=== PATIENT | female | born 1930 | race Caucasian/White ===

== ENCOUNTER 2017-02-21 13:37 | Inpatient (IN) | payer MEDICARE, BC ==
[2017-02-21] MEDS ORDERED: Acetaminophen 500 MG Tab PO ONE (14:34)
--- NOTE | 2017-02-21 14:38 | EDM.PDOC ---
ED HPI GENERAL MEDICAL PROBLEM - General Chief Complaint: General Stated Complaint: WEAK Time Seen by Provider: 02/21/17 14:22 Source of Information: Reports: Patient, Family - History of Present Illness INITIAL COMMENTS - FREE TEXT/NARRATIVE: Poonam is an 87 yo female who presents to the ER, accompanied by her children , with concerns of just not feeling well. They state they have noticed her not being herself for the last couple of weeks. She has a history of UTI's and they are concerned she may have one again. She did have diarrhea the other day and that has since subsided. She did throw up in the middle of the night, nothing since. Family has noticed she has been incontinent today and slightly disorientated. She states she feels well otherwise. Hasn't had any upper respiratory symptoms. She admits she just feels weak. Duration: Getting Worse Location: Reports: Abdomen, Generalized - Related Data Allergies Allergy/AdvReac Type Severity Reaction Status Date / Time aspirin Allergy Nausea Verified 02/21/17 13:42 ciprofloxacin [From Cipro] Allergy Nausea Verified 02/21/17 13:42 ciprofloxacin HCl Allergy Nausea Verified 02/21/17 13:42 [From Cipro] Erlztqa-Tom-Dmi Reductase Allergy Nausea Verified 02/21/17 13:42 Inhibitor Sulfa (Sulfonamide Allergy Nausea Verified 02/21/17 13:42 Antibiotics) Home Meds: Home Meds Acetaminophen [Tylenol] 325 mg PO Q4H PRN 01/02/14 [History] Cholecalciferol (Vitamin D3) [Vitamin D3] 3,000 unit PO DAILY 01/02/14 [History] Levothyroxine [Synthroid] 50 mcg PO DAILY 01/02/14 [History] MV-Mn/Iron/FA/Herbal Cmplx#[id number] [Vitamin D3 Complete Caplet] 1 each PO DAILY 09/08 [History] Metoprolol Succinate [Toprol XL] 25 mg PO DAILY 01/02/14 [History] Multivitamin [Multi-Vitamin Daily] 1 each PO DAILY 01/02/14 [History] Warfarin Sodium 2.5 mg PO SUTUTH 01/02/14 [History] Warfarin Sodium 5 mg PO MOWEFR 01/02/14 [History] amLODIPine [Norvasc] 10 mg PO DAILY 01/02/14 [History] Past Medical History HEENT History: Reports: Cataract, Hard of Hearing, Impaired Vision Cardiovascular History: Reports: Afib, Hypertension Other Genitourinary History: Methicillin-resistant Staphylococcus aureus UTI. [employer] History: Reports: Other (See Below) Other OB/BYN History: hysterectomy Musculoskeletal History: Reports: Arthritis Neurological History: Reports: CVA Endocrine/Metabolic History: Reports: Hypothyroidism - Infectious Disease History Infectious Disease History: Reports: MRSA - Past Surgical History HEENT Surgical History: Reports: Adenoidectomy, Cataract Surgery, Tonsillectomy GI Surgical History: Reports: Appendectomy, Cholecystectomy, Colonoscopy Social & Family History - Tobacco Use Smoking Status *Q: Former Smoker Used Tobacco, but Quit: Yes Month Tobacco Last Used: 40 y.o - Caffeine Use Caffeine Use: Reports: Coffee - Recreational Drug Use Recreational Drug Use: No ED ROS GENERAL - Review of Systems Review Of Systems: See Below Constitutional: Reports: Fever, Decreased Appetite HEENT: Reports: No Symptoms Respiratory: Denies: Shortness of Breath, Wheezing, Cough Cardiovascular: Denies: Chest Pain, Edema, Palpitations, Syncope GI/Abdominal: Reports: Diarrhea, Decreased Appetite, Vomiting. Denies: Abdominal Pain, Bloody Stool : Reports: Frequency, Incontinence. Denies: Dysuria Musculoskeletal: Reports: No Symptoms Skin: Reports: No Symptoms Neurological: Reports: No Symptoms ED EXAM, GENERAL - Physical Exam Exam: See Below Exam Limited By: No Limitations General Appearance: Alert, No Apparent Distress, Thin Ears: Normal External Exam, Hearing Grossly Normal Nose: Normal Inspection, No Blood Throat/Mouth: Normal Inspection, Normal Lips, Normal Oropharynx, Normal Voice, No Airway Compromise Head: Atraumatic, Normocephalic Neck: Normal Inspection, Supple Respiratory/Chest: No Respiratory Distress, Lungs Clear, Normal Breath Sounds, No Accessory Muscle Use Cardiovascular: Regular Rate, Rhythm, No Murmur GI/Abdominal: Normal Bowel Sounds, Soft, Non-Tender, No Organomegaly, No Mass Extremities: Normal Inspection, No Pedal Edema, Normal Capillary Refill Neurological: Alert, Memory Loss Recent Events. No: Slow to Respond Psychiatric: Normal Affect, Normal Mood Skin Exam: Dry, Intact, Normal Color, Increased Warmth Course - Vital Signs Last Recorded V/S: Last Vital Signs Temp 100.8 F H 02/21/17 13:39 Pulse 108 H 02/21/17 13:39 Resp 18 02/21/17 13:39 BP 137/69 02/21/17 13:39 Pulse Ox 96 02/21/17 13:39 - Orders/Labs/Meds Labs: Laboratory Tests 02/21/17 02/21/17 02/21/17 Range/Units 13:57 14:05 14:05 WBC 11.4 H (5.0-10.0) 10^3/uL RBC 4.83 (4.00-5.50) 10^6/uL Hgb 15.2 (12.0-16.0) g/dL Hct 45.0 (37.0-47.0) % MCV 93.2 (82.0-94.0) fL MCH 31.5 (27.0-32.0) pg MCHC 33.8 (33.0-38.0) g/dL RDW Coeff of Diana 13.4 (11.0-15.0) % Plt Count 166 (150-400) 10^3/uL Neut % (Auto) 89.9 H (35-85) % Lymph % (Auto) 4.4 L (10-55) % [place] % (Auto) 5.6 (0-16) % Eos % (Auto) 0 (0-5) % Baso % (Auto) 0.1 (0-3) % Neut # (Auto) 10.26 H (1.80-7.00) 10^3/uL Lymph # (Auto) 0.50 L (1.00-4.80) 10^3/uL [place] # (Auto) 0.64 (0.00-0.80) 10^3/uL Eos # (Auto) 0.00 (0.00-0.45) 10^3/uL Baso # (Auto) 0.01 10^3/uL PT 15.7 H (9.7-12.3) SEC INR 1.44 H (0.92-1.18) Sodium (136-145) mEq/L Potassium (3.5-5.0) mEq/L Chloride (98-106) mEq/L Carbon Dioxide (21-32) mmol/L BUN (7-18) mg/dL Creatinine (0.6-1.0) mg/dL Est Cr Clr Drug Dosing mL/min Estimated GFR (MDRD) (>=60) mL/min Glucose (75-99) mg/dL Calcium (8.4-10.1) mg/dL Total Bilirubin (0.0-1.0) mg/dL AST (15-37) U/L ALT (12-78) U/L Alkaline Phosphatase (46-116) U/L C-Reactive Protein (0.2-0.8) mg/dL Total Protein (6.4-8.2) g/dL Albumin (3.4-5.0) g/dL Urine Color Yellow (YELLOW) Urine Appearance Clear (CLEAR) Urine pH 7.0 (4.5-8.0) Ur Specific [place] 1.015 (1.003-1.020) Urine Protein Negative (NEGATIVE) mg/dL Urine Glucose (UA) Negative (NEGATIVE) mg/dL Urine Ketones Negative (NEGATIVE) mg/dL Urine Occult Blood Trace-intact H (NEGATIVE) Urine Nitrite Negative (NEGATIVE) Urine Bilirubin Negative (NEGATIVE) Urine Urobilinogen 0.2 (0.2-1.0) EU/dL Ur Leukocyte Esterase Trace H (NEGATIVE) Urine RBC Not seen (0-5) /HPF Urine WBC Not seen (0-5) /HPF Amorphous Sediment Moderate H (NOT SEEN) /HPF 02/21/17 Range/Units 14:05 WBC (5.0-10.0) 10^3/uL RBC (4.00-5.50) 10^6/uL Hgb (12.0-16.0) g/dL Hct (37.0-47.0) % MCV (82.0-94.0) fL MCH (27.0-32.0) pg MCHC (33.0-38.0) g/dL RDW Coeff of Diana (11.0-15.0) % Plt Count (150-400) 10^3/uL Neut % (Auto) (35-85) % Lymph % (Auto) (10-55) % [place] % (Auto) (0-16) % Eos % (Auto) (0-5) % Baso % (Auto) (0-3) % Neut # (Auto) (1.80-7.00) 10^3/uL Lymph # (Auto) (1.00-4.80) 10^3/uL [place] # (Auto) (0.00-0.80) 10^3/uL Eos # (Auto) (0.00-0.45) 10^3/uL Baso # (Auto) 10^3/uL PT (9.7-12.3) SEC INR (0.92-1.18) Sodium 137 (136-145) mEq/L Potassium 3.9 (3.5-5.0) mEq/L Chloride 99 (98-106) mEq/L Carbon Dioxide 28 (21-32) mmol/L BUN 21 H D (7-18) mg/dL Creatinine 1.2 H (0.6-1.0) mg/dL Est Cr Clr Drug Dosing 23.72 mL/min Estimated GFR (MDRD) 42 L (>=60) mL/min Glucose 117 H (75-99) mg/dL Calcium 9.1 (8.4-10.1) mg/dL Total Bilirubin 1.1 H (0.0-1.0) mg/dL AST 30 (15-37) U/L ALT 27 (12-78) U/L Alkaline Phosphatase 51 (46-116) U/L C-Reactive Protein 4.8 H (0.2-0.8) mg/dL Total Protein 7.5 (6.4-8.2) g/dL Albumin 3.8 (3.4-5.0) g/dL Urine Color (YELLOW) Urine Appearance (CLEAR) Urine pH (4.5-8.0) Ur Specific [place] (1.003-1.020) Urine Protein (NEGATIVE) mg/dL Urine Glucose (UA) (NEGATIVE) mg/dL Urine Ketones (NEGATIVE) mg/dL Urine Occult Blood (NEGATIVE) Urine Nitrite (NEGATIVE) Urine Bilirubin (NEGATIVE) Urine Urobilinogen (0.2-1.0) EU/dL Ur Leukocyte Esterase (NEGATIVE) Urine RBC (0-5) /HPF Urine WBC (0-5) /HPF Amorphous Sediment (NOT SEEN) /HPF Departure - Departure Time of Disposition: 14:30 Disposition: Admitted As Inpatient 66 Clinical Impression: Weakness, Acute UTI - Discharge Information Referrals: Shane Vanegas MD [Primary Care Provider] - - Problem List & Annotations (1) Weakness SNOMED Code(s): 00192163 Code(s): R53.1 - WEAKNESS Status: Acute Priority: High Current Visit: Yes (2) Acute UTI SNOMED Code(s): 598578341 Code(s): N39.0 - URINARY TRACT INFECTION, SITE NOT SPECIFIED Status: Acute Priority: High Current Visit: Yes - Problem List Review Problem List Initiated/Reviewed/Updated: Yes - Assessment/Plan Admission H&P: Please use this note as an admission H&P Plan: Consulted with Dr. Vanegas, patient's primary physician, and he recommended admission to acute care. Will look at halfway placement to follow d/t progressing weakness. Will obtain blood and urine cultures as well.
[2017-02-21] MEDS ORDERED: Ondansetron 4 MG/2 ML SDV IV PRN (14:52)
[2017-02-21] MEDS ORDERED: Temazepam 15 MG Cap PO PRN (14:52)
[2017-02-21] MEDS ORDERED: Acetaminophen 325 MG Tab PO PRN (14:52)
[2017-02-21] MEDS ORDERED: Docusate Sodium 100 MG Cap PO PRN (14:52)
[2017-02-21] MEDS: Lactated Ringers 1,000 ML IV SCH ×2 (15:39→23:20)
[2017-02-21] MEDS: Enoxaparin 30 MG/0.3 ML Syringe SUBCUT SCH (15:39)
[2017-02-21] MEDS: cefTRIAXone 1 GM Vial IVPUSH SCH (15:39)
[2017-02-21] MEDS: Warfarin 5 MG Tab PO SCH (15:46)
[2017-02-21] MEDS: Metoprolol Succinate 25 MG Tab.ER PO SCH (15:46)
[2017-02-21] MEDS: amLODIPine 10 MG Tab PO SCH (15:46)
[2017-02-21] MEDS: Levothyroxine 50 MCG Tab PO SCH (15:48)
[2017-02-22] MEDS: Levothyroxine 50 MCG Tab PO SCH (06:01)
[2017-02-22] MEDS: Lactated Ringers 1,000 ML IV SCH ×2 (07:32→15:37)
[2017-02-22] MEDS: Metoprolol Succinate 25 MG Tab.ER PO SCH (07:32)
[2017-02-22] MEDS: amLODIPine 10 MG Tab PO SCH (07:32)
--- NOTE | 2017-02-22 08:25 | PCM.PN ---
- General Info Date of Service: 02/22/17 Admission Dx/Problem (Free Text): UTI Weakness Subjective Update: Patient reports she is feeling better this morning. She reports she was "very sick yesterday" but feels better today. She reports she was having diarrhea and vomiting yesterday. Has had a normal bowel movement since admission. Denies any nausea, vomiting, or diarrhea since hospital admission. Neha any dysuria, frequency, or urgency. Family reported patient had been incontinent, has not been in the hospital. Nursing reports she has been up walking to the bathroom with assist of 1 and a walker. Patient denies any pain. WBC improved from 11.4 yesterday to normal today a 7.3. CRP did increase slightly from 4.8 yesterday to 5.6 today. Creatinine improved from 1.2 yesterday to 1.1 today. UA did show trace leukocyte esterase yesterday, awaiting urine culture. Nasal swab was positive for MRSA. Patient does have history of MRSA UTI. Functional Status: Reports: Pain Controlled, Tolerating Diet, Ambulating, Urinating. Denies: New Symptoms - Review of Systems General: Reports: Weakness, Other (Decreased Appetite). Denies: Fever, Fatigue , Chills HEENT: Reports: No Symptoms. Denies: Headaches, Sinus Congestion, Sore Throat, Rhinitis Pulmonary: Reports: No Symptoms. Denies: Shortness of Breath, Cough Cardiovascular: Reports: No Symptoms. Denies: Chest Pain, Palpitations, Dyspnea on Exertion, Edema, Lightheadedness Gastrointestinal: Reports: Decreased Appetite. Denies: Abdominal Pain, Constipation, Diarrhea, Hematochezia, Melena, Nausea, Vomiting Genitourinary: Denies: Dysuria, Frequency, Burning, Urgency, Incontinence, Hematuria, Flank Pain Musculoskeletal: Reports: No Symptoms Skin: Reports: No Symptoms Neurological: Reports: Weakness. Denies: Confusion, Dizziness, Headache, Numbness, Paresthesia, Pre-Existing Deficit, Seizure, Syncope, Tingling, Tremors , Trouble Speaking, Difficulty Walking, Change in Speech, Gait Disturbance Psychiatric: Reports: No Symptoms - Patient Data Vitals - Most Recent: Last Vital Signs Temp 97.4 F 02/22/17 07:53 Pulse 75 02/22/17 07:53 Resp 18 02/22/17 07:53 BP 106/80 02/22/17 07:53 Pulse Ox 96 02/22/17 07:53 Weight - Most Recent: 116 lb I&O - Last 24 Hours: Intake & Output 02/21/17 02/22/17 02/22/17 22:59 06:59 14:59 Intake Total 960 1000 Balance 960 1000 Lab Results Last 24 Hours: Laboratory Results - last 24 hr 02/22/17 02/22/17 02/22/17 Range/Units 06:50 06:50 06:50 WBC 7.3 (5.0-10.0) 10^3/uL RBC 4.21 (4.00-5.50) 10^6/uL Hgb 13.4 (12.0-16.0) g/dL Hct 39.5 (37.0-47.0) % MCV 93.8 (82.0-94.0) fL MCH 31.8 (27.0-32.0) pg MCHC 33.9 (33.0-38.0) g/dL RDW Coeff of Diana 13.3 (11.0-15.0) % Plt Count 144 L (150-400) 10^3/uL Neut % (Auto) 75.9 (35-85) % Lymph % (Auto) 11.5 (10-55) % [place] % (Auto) 11.2 (0-16) % Eos % (Auto) 1.1 (0-5) % Baso % (Auto) 0.3 (0-3) % Neut # (Auto) 5.56 (1.80-7.00) 10^3/uL Lymph # (Auto) 0.84 L (1.00-4.80) 10^3/uL [place] # (Auto) 0.82 H (0.00-0.80) 10^3/uL Eos # (Auto) 0.08 (0.00-0.45) 10^3/uL Baso # (Auto) 0.02 10^3/uL PT 15.7 H (9.7-12.3) SEC INR 1.44 H (0.92-1.18) Sodium 139 (136-145) mEq/L Potassium 4.0 (3.5-5.0) mEq/L Chloride 103 (98-106) mEq/L Carbon Dioxide 29 (21-32) mmol/L BUN 19 H (7-18) mg/dL Creatinine 1.1 H (0.6-1.0) mg/dL Est Cr Clr Drug Dosing 25.88 mL/min Estimated GFR (MDRD) 47 L (>=60) mL/min Glucose 78 D (75-99) mg/dL Calcium 8.5 (8.4-10.1) mg/dL C-Reactive Protein 5.6 H (0.2-0.8) mg/dL Med Orders - Current: Current Medications Acetaminophen (Tylenol) 650 mg PO Q4H PRN PRN Reason: Pain (Mild 1-3)/fever Amlodipine Besylate (Norvasc) 10 mg PO DAILY [facility] Last Admin: 02/22/17 07:32 Dose: 10 mg Ceftriaxone Sodium (Rocephin) 1 gm IVPUSH Q24H [facility] Last Admin: 02/21/17 15:39 Dose: 1 gm Docusate Sodium (Colace) 100 mg PO BID PRN PRN Reason: Constipation Enoxaparin Sodium (Lovenox) 30 mg SUBCUT Q24H [facility] Last Admin: 02/21/17 15:39 Dose: 30 mg Lactated Ringer's (Ringers, Lactated) 1,000 mls @ 125 mls/hr IV ASDIRECTED [facility] Last Admin: 02/22/17 07:32 Dose: 125 mls/hr Levothyroxine Sodium (Synthroid) 50 mcg PO 0700 [facility] Last Admin: 02/22/17 06:01 Dose: 50 mcg Metoprolol Succinate (Toprol Xl) 25 mg PO DAILY [facility] Last Admin: 02/22/17 07:32 Dose: 25 mg Ondansetron HCl (Zofran) 4 mg IV Q4H PRN PRN Reason: Nausea/Vomiting Temazepam (Restoril) 15 mg PO BEDTIME PRN PRN Reason: Sleep Warfarin Sodium (Coumadin) 5 mg PO DAILY@1200 [facility] Last Admin: 02/21/17 15:46 Dose: 5 mg Discontinued Medications Acetaminophen (Tylenol Extra Strength) 1,000 mg PO ONETIME ONE Stop: 02/21/17 14:35 Last Admin: 02/21/17 14:42 Dose: 1,000 mg - Exam Quality Assessment: DVT Prophylaxis. No: Supplemental Oxygen, Skin Breakdown General: Alert, Oriented, No Acute Distress Neck: Supple Lungs: Normal Respiratory Effort, Wheezing Cardiovascular: Regular Rate, Regular Rhythm, Murmurs GI/Abdominal Exam: Normal Bowel Sounds, Soft, Non-Tender, No Organomegaly, No Distention, No Abnormal Bruit, No Mass, Pelvis Stable Extremities: Normal Inspection, Normal Range of Motion, Non-Tender, No Pedal Edema, Normal Capillary Refill Skin: Warm, Dry, Intact Neurological: No New Focal Deficit Psy/Mental Status: Alert, Normal Affect, Normal Mood - Problem List & Annotations (1) Acute UTI SNOMED Code(s): 679579590 Code(s): N39.0 - URINARY TRACT INFECTION, SITE NOT SPECIFIED Status: Acute Priority: High Current Visit: Yes (2) Weakness SNOMED Code(s): 16228722 Code(s): R53.1 - WEAKNESS Status: Acute Priority: High Current Visit: Yes - Problem List Review Problem List Initiated/Reviewed/Updated: Yes - Plan Plan:: Continue IV Rocephin. Awaiting urine culture and sensitivity. Awaiting blood culture results. VSS on RA. Has been afebrile. Continue IVF. Creatinine and BUN improving. Encourage patient to be up ambulating and sitting in chair. PT to evaluate and treat. Continue 5 mg Coumadin daily. Daily INR. INR 1.44 today. Will assess need and availability of SNF, although patient wishes to return home upon discharge.
[2017-02-22] MEDS: cefTRIAXone 1 GM Vial IVPUSH SCH (11:41)
[2017-02-22] MEDS: Warfarin 5 MG Tab PO SCH (11:41)
[2017-02-22] MEDS: Enoxaparin 30 MG/0.3 ML Syringe SUBCUT SCH (11:41)
[2017-02-23] MEDS: Lactated Ringers 1,000 ML IV SCH ×3 (00:02→17:52)
[2017-02-23] MEDS: Levothyroxine 50 MCG Tab PO SCH (06:21)
[2017-02-23] MEDS: Metoprolol Succinate 25 MG Tab.ER PO SCH (08:11)
[2017-02-23] MEDS: amLODIPine 10 MG Tab PO SCH (08:12)
--- NOTE | 2017-02-23 08:57 | PCM.PN ---
- General Info Date of Service: 02/23/17 Admission Dx/Problem (Free Text): UTI Weakness Subjective Update: Patient reports she is feeling well other than some abdominal pain this morning. She reports last night she started feeling nauseated and has had some mild abdominal pain since then. Denies any constipation, vomiting or diarrhea. Urine culture shows staphlococcus aeurus. Sensitivity report not back. Blood cultures negative. Labs have improved on Rocephin. Will continue. Functional Status: Reports: Pain Controlled, Tolerating Diet, Ambulating, Urinating. Denies: New Symptoms - Review of Systems General: Reports: Weakness. Denies: Fever, Fatigue, Chills Pulmonary: Reports: No Symptoms. Denies: Shortness of Breath, Cough Cardiovascular: Reports: No Symptoms. Denies: Chest Pain, Lightheadedness Gastrointestinal: Reports: Abdominal Pain (diffuse), Decreased Appetite, Nausea. Denies: Constipation, Diarrhea, Hematochezia, Melena, Vomiting Genitourinary: Reports: Frequency. Denies: Dysuria Neurological: Reports: No Symptoms - Patient Data Vitals - Most Recent: Last Vital Signs Temp 98.8 F 02/23/17 07:19 Pulse 72 02/23/17 08:11 Resp 16 02/23/17 07:19 BP 99/61 02/23/17 08:11 Pulse Ox 97 02/23/17 07:19 Weight - Most Recent: 116 lb I&O - Last 24 Hours: Intake & Output 02/22/17 02/23/17 02/23/17 22:59 06:59 14:59 Intake Total 1000 1000 960 Balance 1000 1000 960 Lab Results Last 24 Hours: Laboratory Results - last 24 hr 02/23/17 02/23/17 02/23/17 Range/Units 07:00 07:00 07:00 WBC 6.7 (5.0-10.0) 10^3/uL RBC 4.02 (4.00-5.50) 10^6/uL Hgb 12.6 (12.0-16.0) g/dL Hct 37.7 (37.0-47.0) % MCV 93.8 (82.0-94.0) fL MCH 31.3 (27.0-32.0) pg MCHC 33.4 (33.0-38.0) g/dL RDW Coeff of Diana 13.1 (11.0-15.0) % Plt Count 148 L (150-400) 10^3/uL Neut % (Auto) 65.8 (35-85) % Lymph % (Auto) 16.3 (10-55) % [place] % (Auto) 14.6 (0-16) % Eos % (Auto) 3.0 (0-5) % Baso % (Auto) 0.3 (0-3) % Neut # (Auto) 4.43 (1.80-7.00) 10^3/uL Lymph # (Auto) 1.10 (1.00-4.80) 10^3/uL [place] # (Auto) 0.98 H (0.00-0.80) 10^3/uL Eos # (Auto) 0.20 (0.00-0.45) 10^3/uL Baso # (Auto) 0.02 10^3/uL PT 20.4 H (9.7-12.3) SEC INR 1.85 H (0.92-1.18) Sodium 143 (136-145) mEq/L Potassium 3.7 (3.5-5.0) mEq/L Chloride 106 (98-106) mEq/L Carbon Dioxide 30 (21-32) mmol/L BUN 11 (7-18) mg/dL Creatinine 1.1 H (0.6-1.0) mg/dL Est Cr Clr Drug Dosing 25.88 mL/min Estimated GFR (MDRD) 47 L (>=60) mL/min Glucose 88 (75-99) mg/dL Calcium 8.4 (8.4-10.1) mg/dL C-Reactive Protein 3.1 H (0.2-0.8) mg/dL Hugh Results Last 24 Hours: Microbiology 02/21/17 15:05 Aerobic Blood Culture - Preliminary Blood - Venous - Lab Draw NO GROWTH AFTER 1 DAY Anaerobic Blood Culture - Preliminary NO GROWTH AFTER 1 DAY 02/21/17 15:05 Aerobic Blood Culture - Preliminary Blood - Venous NO GROWTH AFTER 1 DAY Anaerobic Blood Culture - Preliminary NO GROWTH AFTER 1 DAY Med Orders - Current: Current Medications Acetaminophen (Tylenol) 650 mg PO Q4H PRN PRN Reason: Pain (Mild 1-3)/fever Last Admin: 02/23/17 02:35 Dose: 650 mg Amlodipine Besylate (Norvasc) 10 mg PO DAILY [facility] Last Admin: 02/23/17 08:12 Dose: Not Given Ceftriaxone Sodium (Rocephin) 1 gm IVPUSH Q24H [facility] Last Admin: 02/22/17 11:41 Dose: 1 gm Docusate Sodium (Colace) 100 mg PO BID PRN PRN Reason: Constipation Lactated Ringer's (Ringers, Lactated) 1,000 mls @ 125 mls/hr IV ASDIRECTED [facility] Last Admin: 02/23/17 07:43 Dose: 125 mls/hr Levothyroxine Sodium (Synthroid) 50 mcg PO 0700 [facility] Last Admin: 02/23/17 06:21 Dose: 50 mcg Metoprolol Succinate (Toprol Xl) 25 mg PO DAILY [facility] Last Admin: 02/23/17 08:11 Dose: 25 mg Ondansetron HCl (Zofran) 4 mg IV Q4H PRN PRN Reason: Nausea/Vomiting Last Admin: 02/23/17 07:43 Dose: 4 mg Temazepam (Restoril) 15 mg PO BEDTIME PRN PRN Reason: Sleep Warfarin Sodium (Coumadin) 5 mg PO DAILY@1200 [facility] Last Admin: 02/22/17 11:41 Dose: 5 mg Discontinued Medications Acetaminophen (Tylenol Extra Strength) 1,000 mg PO ONETIME ONE Stop: 02/21/17 14:35 Last Admin: 02/21/17 14:42 Dose: 1,000 mg Enoxaparin Sodium (Lovenox) 30 mg SUBCUT Q24H [facility] Stop: 02/23/17 20:00 Last Admin: 02/22/17 11:41 Dose: 30 mg - Exam General: Alert, Oriented Lungs: Clear to Auscultation, Normal Respiratory Effort Cardiovascular: Regular Rate, Regular Rhythm GI/Abdominal Exam: Normal Bowel Sounds, Soft, Non-Tender, No Organomegaly, No Distention, No Abnormal Bruit, No Mass, Pelvis Stable Neurological: No New Focal Deficit Psy/Mental Status: Alert, Normal Affect, Normal Mood - Problem List & Annotations (1) Acute UTI SNOMED Code(s): 941372131 Code(s): N39.0 - URINARY TRACT INFECTION, SITE NOT SPECIFIED Status: Acute Priority: High Current Visit: Yes Annotation/Comment:: js [email or web address] (2) Weakness SNOMED Code(s): 31100925 Code(s): R53.1 - WEAKNESS Status: Acute Priority: High Current Visit: Yes - Problem List Review Problem List Initiated/Reviewed/Updated: Yes - Plan Plan:: Continue IV Rocephin. Labs improving. Urine culture shows staph auerous. Awaiting sensitivity report. Blood cultures negative. VSS on RA. Has been afebrile. Continue IVF. BUN normal. Encourage PO intake. Encourage patient to be up ambulating and sitting in chair. PT to evaluate and treat. Continue 5 mg Coumadin daily. Daily INR. INR 1.84 today. Discussed SNF placement with patient for continued strengthening with PT. Patient in agreement to go to [facility] when bed available. Will transfer to swing bed tomorrow and await bed availability.
[2017-02-23] MEDS: Warfarin 5 MG Tab PO SCH (11:36)
[2017-02-23] MEDS: cefTRIAXone 1 GM Vial IVPUSH SCH (11:37)
[2017-02-24] MEDS: Lactated Ringers 1,000 ML IV SCH (01:37)
[2017-02-24] MEDS: Levothyroxine 50 MCG Tab PO SCH (06:08)
[2017-02-24 09:52] VITALS: BP 120/68
[2017-02-24] MEDS: Metoprolol Succinate 25 MG Tab.ER PO SCH (09:52)
[2017-02-24] MEDS: amLODIPine 10 MG Tab PO SCH (09:52)
--- NOTE | 2017-02-24 13:06 | PCM.DCSUM1 ---
Discharge Summary - Hospital Course Free Text/Narrative:: Poonam is an 87 year old female who was admitted to the hospital on 02/21/17 from the ED for acute UTI and progressive weakness. She was started on Rocephin and her WBC and CRP improved. Her weakness also improve. Her urine culture did grow out MRSA, sensitive to Macrobid. She was switched to Macrobid. Her blood cultures were negative. Throughout hospital stay, patient has been feeling better. Her cognition and weakness have improved. She does still have generalized weakness and requires some assistance and does still have some confusion at night. She will be discharged to swing bed until SNF bed is available on Sunday. She will require PT for strengthening. - Discharge Data Discharge Date: 02/24/17 Discharge Disposition: DC/Tfer W/I Hosp To Swing 61 Condition: Good - Discharge Diagnosis/Problem(s) (1) Acute UTI SNOMED Code(s): 052095368 ICD Code: N39.0 - URINARY TRACT INFECTION, SITE NOT SPECIFIED Status: Acute Priority: High Problem Details: MRSA (2) Weakness SNOMED Code(s): 06862305 ICD Code: R53.1 - WEAKNESS Status: Acute Priority: High - Patient Instructions Diet: Usual Diet as Tolerated Activity: As Tolerated - Discharge Plan Home Medications: Home Meds Acetaminophen [Tylenol] 325 mg PO Q4H PRN 01/02/14 [History] Cholecalciferol (Vitamin D3) [Vitamin D3] 3,000 unit PO DAILY 01/02/14 [History] Levothyroxine [Synthroid] 50 mcg PO DAILY 01/02/14 [History] MV-Mn/Iron/FA/Herbal Cmplx#190 [Vitamin D3 Complete Caplet] 1 each PO DAILY 09/08 [History] Metoprolol Succinate [Toprol XL] 25 mg PO DAILY 01/02/14 [History] Multivitamin [Multi-Vitamin Daily] 1 each PO DAILY 01/02/14 [History] Warfarin Sodium 2.5 mg PO SUTUTHSA 01/02/14 [History] Warfarin Sodium 5 mg PO MOWEFR 01/02/14 [History] amLODIPine [Norvasc] 10 mg PO DAILY 01/02/14 [History] Patient Handouts: Urinary Tract Infection, Adult Forms: ED Department Discharge Referrals: Shane Vanegas MD [Primary Care Provider] - - General Info Date of Service: 02/24/17 Admission Dx/Problem (Free Text: UTI Weakness Subjective Update: Patient reports she has been feeling well. She has been up ambulating in the halls with assistance. No fever or chills. Labs are improving. - Review of Systems General: Reports: No Symptoms, Weakness. Denies: Fever, Fatigue, Chills HEENT: Reports: No Symptoms Pulmonary: Reports: No Symptoms. Denies: Shortness of Breath, Cough Cardiovascular: Reports: No Symptoms. Denies: Chest Pain, Dyspnea on Exertion Gastrointestinal: Reports: No Symptoms. Denies: Abdominal Pain, Decreased Appetite, Diarrhea, Nausea, Vomiting Genitourinary: Reports: Frequency. Denies: Dysuria, Burning, Urgency Neurological: Reports: Confusion (at night), Weakness (generalized) Psychiatric: Reports: No Symptoms - Patient Data Vitals - Most Recent: Last Vital Signs Temp 99.2 F 02/24/17 07:48 Pulse 66 02/24/17 09:52 Resp 19 02/24/17 07:48 BP 120/68 02/24/17 09:52 Pulse Ox 97 02/24/17 07:48 Weight - Most Recent: 116 lb I&O - Last 24 hours: Intake & Output 02/23/17 02/24/17 02/24/17 22:59 06:59 14:59 Intake Total 1000 969 200 Balance 1000 969 200 Lab Results - Last 24 hrs: Laboratory Results - last 24 hr 02/24/17 02/24/17 02/24/17 Range/Units 06:55 06:55 06:55 WBC 6.2 (5.0-10.0) 10^3/uL RBC 3.90 L (4.00-5.50) 10^6/uL Hgb 12.3 (12.0-16.0) g/dL Hct 37.3 (37.0-47.0) % MCV 95.6 H (82.0-94.0) fL MCH 31.5 (27.0-32.0) pg MCHC 33.0 (33.0-38.0) g/dL RDW Coeff of Diana 13.1 (11.0-15.0) % Plt Count 156 (150-400) 10^3/uL Neut % (Auto) 67.2 (35-85) % Lymph % (Auto) 17.5 (10-55) % [place] % (Auto) 10.6 (0-16) % Eos % (Auto) 4.5 (0-5) % Baso % (Auto) 0.2 (0-3) % Neut # (Auto) 4.18 (1.80-7.00) 10^3/uL Lymph # (Auto) 1.09 (1.00-4.80) 10^3/uL [place] # (Auto) 0.66 (0.00-0.80) 10^3/uL Eos # (Auto) 0.28 (0.00-0.45) 10^3/uL Baso # (Auto) 0.01 10^3/uL PT 24.8 H (9.7-12.3) SEC INR 2.24 H (0.92-1.18) Sodium 142 (136-145) mEq/L Potassium 3.8 (3.5-5.0) mEq/L Chloride 106 (98-106) mEq/L Carbon Dioxide 31 (21-32) mmol/L BUN 9 (7-18) mg/dL Creatinine 1.0 (0.6-1.0) mg/dL Est Cr Clr Drug Dosing 28.47 mL/min Estimated GFR (MDRD) 52 L (>=60) mL/min Glucose 85 (75-99) mg/dL Calcium 8.3 L (8.4-10.1) mg/dL C-Reactive Protein 1.3 H (0.2-0.8) mg/dL MICHELLE Results - Last 24 hrs: Microbiology 02/21/17 20:00 Urine Culture - Final Urine, Clean Catch (Mrsa) Staphylococcus Aureus 02/21/17 15:05 Aerobic Blood Culture - Preliminary Blood - Venous - Lab Draw NO GROWTH AFTER 2 DAYS Anaerobic Blood Culture - Preliminary NO GROWTH AFTER 2 DAYS 02/21/17 15:05 Aerobic Blood Culture - Preliminary Blood - Venous NO GROWTH AFTER 2 DAYS Anaerobic Blood Culture - Preliminary NO GROWTH AFTER 2 DAYS Med Orders - Current: Current Medications Acetaminophen (Tylenol) 650 mg PO Q4H PRN PRN Reason: Pain (Mild 1-3)/fever Last Admin: 02/23/17 02:35 Dose: 650 mg Amlodipine Besylate (Norvasc) 10 mg PO DAILY [facility] Last Admin: 02/24/17 09:52 Dose: 10 mg Ceftriaxone Sodium (Rocephin) 1 gm IVPUSH Q24H [facility] Last Admin: 02/23/17 11:37 Dose: 1 gm Docusate Sodium (Colace) 100 mg PO BID PRN PRN Reason: Constipation Lactated Ringer's (Ringers, Lactated) 1,000 mls @ 125 mls/hr IV ASDIRECTED [facility] Last Admin: 02/24/17 01:37 Dose: 125 mls/hr Levothyroxine Sodium (Synthroid) 50 mcg PO 0700 [facility] Last Admin: 02/24/17 06:08 Dose: 50 mcg Metoprolol Succinate (Toprol Xl) 25 mg PO DAILY [facility] Last Admin: 02/24/17 09:52 Dose: 25 mg Ondansetron HCl (Zofran) 4 mg IV Q4H PRN PRN Reason: Nausea/Vomiting Last Admin: 02/23/17 07:43 Dose: 4 mg Temazepam (Restoril) 15 mg PO BEDTIME PRN PRN Reason: Sleep Warfarin Sodium (Coumadin) 5 mg PO DAILY@1200 [facility] Last Admin: 02/23/17 11:36 Dose: 5 mg Discontinued Medications Acetaminophen (Tylenol Extra Strength) 1,000 mg PO ONETIME ONE Stop: 02/21/17 14:35 Last Admin: 02/21/17 14:42 Dose: 1,000 mg Enoxaparin Sodium (Lovenox) 30 mg SUBCUT Q24H [facility] Stop: 02/23/17 20:00 Last Admin: 02/22/17 11:41 Dose: 30 mg - Exam General: Reports: Alert, Oriented Neck: Reports: Supple Lungs: Reports: Clear to Auscultation, Normal Respiratory Effort Cardiovascular: Reports: Regular Rate, Regular Rhythm GI/Abdominal Exam: Normal Bowel Sounds, Soft, Non-Tender, No Organomegaly, No Distention, No Abnormal Bruit, No Mass, Pelvis Stable Extremities: Normal Inspection, Normal Range of Motion, Non-Tender, No Pedal Edema, Normal Capillary Refill Skin: Reports: Warm, Dry, Intact Neurological: Reports: No New Focal Deficit Psy/Mental Status: Reports: Alert, Normal Affect, Normal Mood *Q Meaningful Use (DIS) - VTE *Q VTE Criteria *Q: - Stroke *Q Stroke Criteria *Q: - AMI *Q AMI Criteria *Q:
[2017-02-24] MEDS: Warfarin 5 MG Tab PO SCH (13:18)
[2017-02-24] MEDS: cefTRIAXone 1 GM Vial IVPUSH SCH (13:18)
[2017-02-25] MEDS ORDERED: Warfarin 5 MG Tab PO SCH (13:06)
[2017-02-26] MEDS ORDERED: Warfarin 5 MG Tab PO SCH (12:00)
== END 2017-02-24 13:10 | disposition swing bed (61) | DRG 690 ==
LOC: CC.ED 13:37 → CC.MS 14:33 → UNDOADMIN 14:33 → CC.MS 14:52
PROVIDERS: ADMIT Physician Assistant Medical; ATTEND General Practice
DX: N39.0 Urinary tract infection, site not specified (principal); R53.1 Weakness; B95.62 Methicillin resistant Staphylococcus aureus infection as the cause of diseases classified elsewhere; I48.91 Unspecified atrial fibrillation; I10 Essential (primary) hypertension; M19.90 Unspecified osteoarthritis, unspecified site; E03.9 Hypothyroidism, unspecified; Z86.73 Personal history of transient ischemic attack (TIA), and cerebral infarction without residual deficits; Z87.440 Personal history of urinary (tract) infections; Z86.14 Personal history of Methicillin resistant Staphylococcus aureus infection; H91.90 Unspecified hearing loss, unspecified ear; H54.7 Unspecified visual loss; Z87.891 Personal history of nicotine dependence; Z88.1 Allergy status to other antibiotic agents; Z88.2 Allergy status to sulfonamides; Z88.8 Allergy status to other drugs, medicaments and biological substances; Z79.01 Long term (current) use of anticoagulants; Z79.899 Other long term (current) drug therapy
CPT/HCPCS: 36415; 80053; 81001; 85025; 85610; 86140; 99285; A9270; 80048; 87040; 87086; 87088; 87186; 97110-GP; 97161-GP; J0696; J1650; J2405; J7120

== ENCOUNTER 2017-02-24 13:16 | Inpatient (IN) | payer MEDICARE, BC ==
[2017-02-24] MEDS ORDERED: Temazepam 15 MG Cap PO PRN (17:27)
[2017-02-24] MEDS ORDERED: Magnesium Hydroxide 400 MG/5 ML Susp 30 ML Cup PO PRN (17:27)
[2017-02-24] MEDS ORDERED: Docusate Sodium 100 MG Cap PO PRN (17:27)
[2017-02-24] MEDS ORDERED: Ondansetron 4 MG/2 ML SDV IV PRN (17:27)
[2017-02-24] MEDS: Warfarin 2.5 MG Tab PO SCH (18:46)
[2017-02-24] MEDS: Nitrofurantoin Monohydrate/Macrocrystalline 100 MG Cap PO SCH (19:17)
[2017-02-25] MEDS: Levothyroxine 50 MCG Tab PO SCH (06:20)
[2017-02-25] MEDS: amLODIPine 10 MG Tab PO SCH (08:14)
[2017-02-25] MEDS: Nitrofurantoin Monohydrate/Macrocrystalline 100 MG Cap PO SCH ×2 (08:14→19:31)
[2017-02-25] MEDS: Metoprolol Succinate 25 MG Tab.ER PO SCH (08:14)
[2017-02-25] MEDS: Acetaminophen 325 MG Tab PO PRN ×2 (08:15→18:42)
[2017-02-25] MEDS: Warfarin 2.5 MG Tab PO SCH (12:02)
[2017-02-26] MEDS: Levothyroxine 50 MCG Tab PO SCH (06:27)
[2017-02-26] MEDS: amLODIPine 10 MG Tab PO SCH (07:50)
[2017-02-26] MEDS: Nitrofurantoin Monohydrate/Macrocrystalline 100 MG Cap PO SCH ×2 (07:50→19:31)
[2017-02-26] MEDS: Metoprolol Succinate 25 MG Tab.ER PO SCH (07:50)
[2017-02-26] MEDS ORDERED: Warfarin 5 MG Tab PO SCH (12:00)
[2017-02-26] MEDS ORDERED: Ondansetron 4 MG Tab.DIS PO PRN (12:43)
[2017-02-26] MEDS: Ondansetron 4 MG Tab.DIS PO SCH (19:05)
[2017-02-27] MEDS: Levothyroxine 50 MCG Tab PO SCH (06:28)
[2017-02-27] MEDS: Ondansetron 4 MG Tab.DIS PO SCH ×2 (06:29→19:42)
[2017-02-27] MEDS: Nitrofurantoin Monohydrate/Macrocrystalline 100 MG Cap PO SCH ×2 (07:36→19:42)
[2017-02-27] MEDS: Metoprolol Succinate 25 MG Tab.ER PO SCH (07:37)
[2017-02-27] MEDS: amLODIPine 10 MG Tab PO SCH (07:37)
[2017-02-27] MEDS: Acetaminophen 325 MG Tab PO PRN (08:24)
[2017-02-27] MEDS: Warfarin 2.5 MG Tab PO SCH (12:01)
[2017-02-27] MEDS ORDERED: Tuberculin, PPD 5 Units/0.1 ML 1 ML MDV IDERM ONE (13:50)
[2017-02-28] MEDS: Ondansetron 4 MG Tab.DIS PO SCH (07:03)
[2017-02-28] MEDS: Levothyroxine 50 MCG Tab PO SCH (07:03)
[2017-02-28] MEDS: Nitrofurantoin Monohydrate/Macrocrystalline 100 MG Cap PO SCH (08:10)
[2017-02-28] MEDS: amLODIPine 10 MG Tab PO SCH (08:11)
[2017-02-28] MEDS: Metoprolol Succinate 25 MG Tab.ER PO SCH (08:11)
[2017-02-28 08:12] VITALS: BP 110/81
--- NOTE | 2017-03-01 12:01 | PCM.DCSUM1 ---
Discharge Summary - Hospital Course Free Text/Narrative:: Patient was admitted to the hospital on 02-21-2017 from the ED for weakness and a UTI. She was started on Rocephin and her labs improved. Weakness did improve. However, her urine culture did grow out MRSA and was sensitive to Macrobid so medications were switched. Did have notable confusion at night, improved during the day. Transferred to swing bed for ongoing physical therapy for weakness for plan to transfer to skilled nursing when bed available. - Discharge Data Discharge Date: 02/28/17 Discharge Disposition: DC/Tfer to [facility] [place] [facility] Condition: Fair - Patient Summary/Data Complications: none Consults: Consultations 02/24/17 17:27 Consult to Transmission Assembler [CONS] Routine PT Evaluation and Treatment [CONS] Routine Hospital Course: Patient has done well during swing bed. Ambulating with standby assist, strength improving. Did have a low grade temp at times but has improved. She is alert and oriented during the day. Nurses report some confusion yet in the evening. Has been on Macrobid for her UTI with MRSA. - Patient Instructions Diet: Usual Diet as Tolerated Activity: As Tolerated - Discharge Plan Prescriptions/Med Rec: Acetaminophen [Tylenol] 650 mg PO Q4H PRN #60 tablet PRN Reason: Pain (Mild 1-3)/fever Nitrofurantoin Monohyd/M-Cryst [IJD: Nitrofurantoin Glenn-MCR] 100 mg PO BID #10 capsule Ondansetron [Zofran ODT] 4 mg PO Q6H PRN #30 tab.dis PRN Reason: Nausea/Vomiting Home Medications: Home Meds Cholecalciferol (Vitamin D3) [Vitamin D3] 3,000 unit PO DAILY 01/02/14 [History] Levothyroxine [Synthroid] 50 mcg PO DAILY 01/02/14 [History] MV-Mn/Iron/FA/Herbal Cmplx#190 [Vitamin D3 Complete Caplet] 1 each PO DAILY 09/08 [History] Metoprolol Succinate [Toprol XL] 25 mg PO DAILY 01/02/14 [History] Multivitamin [Multi-Vitamin Daily] 1 each PO DAILY 01/02/14 [History] Warfarin Sodium 2.5 mg PO SUTUTHSA 01/02/14 [History] Warfarin Sodium 5 mg PO MOWEFR 01/02/14 [History] amLODIPine [Norvasc] 10 mg PO DAILY 01/02/14 [History] Acetaminophen [Tylenol] 650 mg PO Q4H PRN #60 tablet 02/28/17 [Rx] Nitrofurantoin Monohyd/M-Cryst [IJD: Nitrofurantoin Glenn-MCR] 100 mg PO BID #10 capsule 02/28/17 [Rx] Ondansetron [Zofran ODT] 4 mg PO Q6H PRN #30 tab.dis 02/28/17 [Rx] - Discharge Summary/Plan Comment DC Time >30 min.: Yes Discharge Summary/Plan Comment: Discharge to [facility]. Continue Macrobid for 5 more days. Time to review chart and examine patient 20 minutes Time for transfer orders 10 minutes Time for documentation 10 minutes - General Info Date of Service: 02/28/17 Admission Dx/Problem (Free Text: Acute UTI Weakness Functional Status: Reports: Pain Controlled, Tolerating Diet, Ambulating, Urinating - Review of Systems General: Reports: Fever, Weakness, Fatigue HEENT: Reports: No Symptoms Pulmonary: Denies: Shortness of Breath, Cough Cardiovascular: Denies: Chest Pain, Edema, Lightheadedness Gastrointestinal: Denies: Abdominal Pain, Nausea, Vomiting Genitourinary: Reports: Frequency Musculoskeletal: Reports: No Symptoms Skin: Reports: No Symptoms Neurological: Reports: Confusion (at night) - Patient Data Vitals - Most Recent: Last Vital Signs Temp 99.3 F 02/28/17 08:00 Pulse 74 02/28/17 08:11 Resp 18 02/28/17 08:00 BP 110/81 02/28/17 08:11 Pulse Ox 98 02/28/17 08:00 Weight - Most Recent: 120 lb 5.958 oz Med Orders - Current: Current Medications Discontinued Medications Acetaminophen (Tylenol) 650 mg PO Q4H PRN PRN Reason: Pain (Mild 1-3)/fever Last Admin: 02/27/17 08:24 Dose: 650 mg Amlodipine Besylate (Norvasc) 10 mg PO DAILY [facility] Last Admin: 02/28/17 08:11 Dose: 10 mg Docusate Sodium (Colace) 100 mg PO BID PRN PRN Reason: Constipation Levothyroxine Sodium (Synthroid) 50 mcg PO ACBRK [facility] Last Admin: 02/28/17 07:03 Dose: 50 mcg Magnesium Hydroxide (Milk Of Magnesia) 30 ml PO Q12H PRN PRN Reason: Constipation Metoprolol Succinate (Toprol Xl) 25 mg PO DAILY [facility] Last Admin: 02/28/17 08:11 Dose: 25 mg Nitrofurantoin Macrocrystals (Macrobid) 100 mg PO BID [facility] Last Admin: 02/28/17 08:10 Dose: 100 mg Ondansetron HCl (Zofran) 4 mg IV Q6H PRN PRN Reason: Nausea/Vomiting Last Admin: 02/25/17 18:42 Dose: 4 mg Ondansetron HCl (Zofran Odt) 4 mg PO Q6H PRN PRN Reason: Nausea/Vomiting Ondansetron HCl (Zofran Odt) 4 mg PO BID@0700,1900 [facility] Last Admin: 02/28/17 07:03 Dose: 4 mg Temazepam (Restoril) 15 mg PO BEDTIME PRN PRN Reason: Sleep Tuberculin PPD (Aplisol) 5 unit IDERM ONETIME ONE Stop: 02/27/17 13:51 Last Admin: 02/27/17 13:59 Dose: 5 unit Warfarin Sodium (Coumadin) 2.5 mg PO SuTuThSa@1200 [facility] Last Admin: 02/27/17 12:01 Dose: 2.5 mg Warfarin Sodium (Coumadin) 5 mg PO MoWeFr@1200 [facility] Last Admin: 02/26/17 11:59 Dose: 5 mg - Exam General: Reports: Alert, Oriented HEENT: Reports: Mucous Membr. Moist/[place] Neck: Reports: Supple Lungs: Reports: Clear to Auscultation, Normal Respiratory Effort Cardiovascular: Reports: Regular Rate, Regular Rhythm GI/Abdominal Exam: Normal Bowel Sounds, Soft, Non-Tender *Q Meaningful Use (DIS) - VTE *Q VTE Criteria *Q: - Stroke *Q Stroke Criteria *Q: - AMI *Q AMI Criteria *Q:
== END 2017-02-28 10:05 | DRG 948 ==
LOC: CC.MS 13:16 → UNDOADMIN 13:16 → CC.MS 13:20
PROVIDERS: ADMIT Nurse Practitioner Family; ATTEND General Practice
DX: R53.1 Weakness (principal); N39.0 Urinary tract infection, site not specified; R41.0 Disorientation, unspecified; A49.02 Methicillin resistant Staphylococcus aureus infection, unspecified site; Z79.01 Long term (current) use of anticoagulants; Z79.899 Other long term (current) drug therapy
CPT/HCPCS: 36415; 80048; 81001; 85025; 85610; 86580; 97110-GP; A9270-GY; J2405